=== PATIENT | male | born 2000 | race Caucasian/White ===

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

== ENCOUNTER 2019-02-01 03:59 | Emergency (ER) | payer BC ==
[~2019-02-01] VITALS: Ht 180.3 cm; Wt 77.1 kg
[~2019-02-01 03:59] MED LIST changes: +ZOFRAN4 MG PO
[2019-02-01 04:01] VITALS: BP 133/82
[2019-02-01] MEDS ORDERED: Motrin,Rufen800 MG PO (05:30)
== END 2019-02-01 05:53 | disposition home or self-care (01) ==
LOC: ED 03:59
DX: S01.01XA Laceration without foreign body of scalp, initial encounter (principal); S46.912A Strain of unspecified muscle, fascia and tendon at shoulder and upper arm level, left arm, initial encounter; Z91.030 Bee allergy status; W10.8XXA Fall (on) (from) other stairs and steps, initial encounter; Y93.89 Activity, other specified; Y92.098 Other place in other non-institutional residence as the place of occurrence of the external cause; Y99.8 Other external cause status

== ENCOUNTER 2020-01-05 23:01 | Emergency (ER) | payer BC ==
[~2020-01-05] VITALS: Ht 182.8 cm; Wt 77.1 kg
[~2020-01-05 23:01] MED LIST changes: +Motrin,Rufen800 MG PO
[2020-01-05 23:11] VITALS: BP 110/60
== END 2020-01-06 01:10 | disposition home or self-care (01) ==
LOC: ED 23:01
DX: S09.90XA Unspecified injury of head, initial encounter (principal); R51 Headache; Z91.030 Bee allergy status; Z79.899 Other long term (current) drug therapy; X58.XXXA Exposure to other specified factors, initial encounter; Y93.89 Activity, other specified; Y92.89 Other specified places as the place of occurrence of the external cause; Y99.8 Other external cause status

== ENCOUNTER 2020-08-19 18:17 | Emergency (ER) | payer BC ==
[~2020-08-19] VITALS: Ht 182.8 cm; Wt 81.6 kg
[2020-08-19 18:49] VITALS: BP 118/49
== END 2020-08-19 19:15 | disposition home or self-care (01) ==
LOC: ED 18:17
DX: Z20.2 Contact with and (suspected) exposure to infections with a predominantly sexual mode of transmission (principal); Z91.030 Bee allergy status; Z79.899 Other long term (current) drug therapy

== ENCOUNTER 2021-04-23 16:06 | Emergency (ER) | payer BC ==
[~2021-04-23] VITALS: Wt 81.6 kg
[2021-04-23 16:16] VITALS: BP 118/72
== END 2021-04-23 17:15 | disposition home or self-care (01) ==
LOC: ED 16:06
DX: L24.9 Irritant contact dermatitis, unspecified cause (principal)